=== PATIENT | female | born 1970 | race Caucasian/White ===

== ENCOUNTER → 2019-08-11 | Day surgery (SDC) | payer BC ==
--- NOTE | 2019-08-13 13:55 | OP ---
DATE OF OPERATION: 08/11/2019 PREOPERATIVE DIAGNOSIS: Left breast complex cyst, 11 o'clock, 6 to 7 cm from the nipple. POSTOPERATIVE DIAGNOSIS: Left breast complex cyst, 11 o'clock, 6 to 7 cm from the nipple. PROCEDURE: Left ultrasound-guided cyst aspiration. ATTENDING SURGEON: Stephon Bonner MD ESTIMATED BLOOD LOSS: Minimal. COMPLICATIONS: None. SPECIMEN: None. PROCEDURE: Patient was made aware of the risks and benefits of the procedure and consented. She was placed in the supine position. Under sterile conditions, with 1% lidocaine for local anesthesia, an 18-gauge needle under ultrasound guidance was used to aspirate 0.5 mL of nonbloody pink-yellow fluid. This was not submitted to cytology. The cyst completely decompressed with no residual nodularity. Well tolerated by patient. Sterile dressing applied. Return to office in 6 months. STEPHON BONNER M.D. [id number]
== END | disposition home or self-care (01) ==
LOC: FRADUS-SUR 13:01
PROVIDERS: ATTEND Surgery Surgical Oncology
PROC: BH41ZZZ Ultrasonography of Left Breast (ICD-10-PCS; principal; 2019-08-11)
PROC: 0H9U3ZX Drainage of Left Breast, Percutaneous Approach, Diagnostic (ICD-10-PCS; 2019-08-11)
DX: N60.02 Solitary cyst of left breast (principal)
CPT/HCPCS: 19000; 76942-TC